=== PATIENT | female | born 1990 | race Caucasian/White ===

== ENCOUNTER 2021-11-24 10:50 | Emergency (ER) | payer OTHER ==
[~2021-11-24] VITALS: Ht 165.1 cm; Wt 71.4 kg
[2021-11-24 10:51] VITALS: BP 103/65
[2021-11-24] MEDS ORDERED: LEVO25CA PO (10:59)
[2021-11-24] MEDS ORDERED: METH-1165 PO (12:09)
[2021-11-24] MEDS ORDERED: NAPR-837 PO (12:09)
[2021-11-24] MEDS ORDERED: LIDO5DIS41 TOP (12:10)
[2021-11-24] MEDS ORDERED: KETOROLAC 60MG 2ML VIAL IM ONE (12:10)
[2021-11-24] MEDS ORDERED: methocarbamoL 750 MG TAB PO ONE (12:10)
== END 2021-11-24 12:32 | disposition home or self-care (01) ==
LOC: M ED 10:50
DX: M54.50 Low back pain, unspecified (principal); E03.9 Hypothyroidism, unspecified; Z79.890 Hormone replacement therapy; Z88.1 Allergy status to other antibiotic agents; Z88.2 Allergy status to sulfonamides
CPT/HCPCS: 96372; 99282; J1885

== ENCOUNTER 2022-12-31 08:22 | Day surgery (SDC) | payer OTHER ==
[~2022-12-31] VITALS: Ht 167.6 cm; Wt 72.6 kg
[~2022-12-31 08:22] MED LIST: CITA20TA7 PO; LEVO25CA PO; LIDO5DIS41 TOP; METH-1165 PO; NAPR-837 PO; NORE0.353 PO; QC F0.52 PO; SYNT50TA PO; THERTAB52 PO; ceFAZolin SOD 2 GM in IV 1 EA IV ONE
[2022-12-31] MEDS ORDERED: ONDANSETRON 4MG 2ML VIAL As Ordered ONE (08:34)
[2022-12-31] MEDS ORDERED: propofoL 200 MG/20 ML VIAL As Ordered ONE (08:34)
[2022-12-31] MEDS ORDERED: MIDAZOLAM INJ 2MG/2ML VIAL As Ordered ONE (08:34)
[2022-12-31] MEDS ORDERED: fentaNYL 100 MCG/2 ML INJECTION As Ordered ONE ×2 (08:34→11:31)
[2022-12-31] MEDS ORDERED: ROCURONIUM BROMIDE 50MG/5ML VIAL As Ordered ONE ×2 (08:34→11:25)
[2022-12-31] MEDS ORDERED: LIDOCAINE 2% 100MG/5ML SDV (FOR ANES.) As Ordered ONE (08:34)
[2022-12-31 08:53] LABS: BASO % 0.3 % (0.0-1.0); EOS # 0.2 10^3/uL (0.0-0.5); EOS % 2.5 % (0.0-3.0); HEMATOCRIT 42.6 % (36.0-47.0); HEMOGLOBIN 13.9 g/dl (12.0-15.5); LYMPH # 1.5 10^3/uL (1.5-5.0); LYMPH % 24.2 % (24.0-44.0); MEAN CORPUSCULAR HEMOGLOBIN 30.4 pg (27.0-33.0); MEAN CORPUSCULAR HGB CONC 32.6 g/dl (32.0-36.5); MEAN CORPUSCULAR VOLUME 93.2 fl (80.0-96.0); MONO # 0.5 10^3/uL (0.0-0.8); MONO % 8.2 % (2.0-8.0); NEUTROPHILS # 3.9 10^3/uL (1.5-8.5); NEUTROPHILS % 64.6 % (36.0-66.0); PLATELET COUNT, AUTOMATED 258 10^3/uL (150-450); RED BLOOD COUNT 4.57 10^6/uL (4.00-5.40)
[2022-12-31 09:19] LABS: HCG, SERUM QUALITATIVE NEGATIVE (NEGATIVE)
[2022-12-31] MEDS ORDERED: BUPIVACAINE HCL 0.25% 30ML VIAL As Ordered ONE (10:20)
[2022-12-31] MEDS ORDERED: LIDOCAINE 1% SDV 30ML VIAL As Ordered ONE (10:20)
[2022-12-31] MEDS ORDERED: SILVER NITRATE APPLICATOR (1 = QTY 10) As Ordered ONE (10:20)
[2022-12-31] MEDS ORDERED: ACETAMINOPHEN 1000MG 100ML IV BAG As Ordered ONE (10:43)
[2022-12-31] MEDS ORDERED: KETOROLAC 60MG 2ML VIAL As Ordered ONE (11:03)
[2022-12-31] MEDS ORDERED: SUGAMMADEX SODIUM 500 MG/5 ML VIAL (BRIDION) As Ordered ONE (11:03)
[2022-12-31] MEDS ORDERED: HYDROMORPHONE HCL 0.5 MG/ 0.5 ML SYRINGE IV PRN (12:25)
[2022-12-31] MEDS ORDERED: fentaNYL 100 MCG/2 ML INJECTION IV PRN (12:25)
[2022-12-31] MEDS ORDERED: oxyCODONE 5MG TAB PO PRN ×3 (12:25→13:05)
[2022-12-31] MEDS ORDERED: ONDANSETRON 4MG 2ML VIAL IV PRN (12:25)
[2022-12-31] MEDS ORDERED: LR 1,000 ML IV SCH ×2 (12:25→13:05)
[2022-12-31 14:25] VITALS: BP 124/75
== END 2022-12-31 14:30 | disposition home or self-care (01) ==
LOC: M SDC 08:22
PROVIDERS: ATTEND Obstetrics & Gynecology
DX: N84.0 Polyp of corpus uteri (principal); Z30.2 Encounter for sterilization; E03.9 Hypothyroidism, unspecified; F41.9 Anxiety disorder, unspecified; Z79.899 Other long term (current) drug therapy; Z88.2 Allergy status to sulfonamides
CPT/HCPCS: 36415; 58558; 58661; 84703; 85025; 86850; 86900; 86901; 88302; 88305; J0131; J1100; J1885; J2250; J2405; J3010; S0020

== ENCOUNTER 2023-05-31 16:24 | Emergency (ER) | payer OTHER ==
[~2023-05-31] VITALS: Ht 167.6 cm; Wt 73.8 kg
[~2023-05-31 16:24] MED LIST changes: -ceFAZolin SOD 2 GM in IV 1 EA IV ONE
[2023-05-31 17:22] LABS: BASO % 0.3 % (0.0-1.0); EOS # 0.2 10^3/uL (0.0-0.5); EOS % 1.2 % (0.0-3.0); HEMATOCRIT 41.8 % (36.0-47.0); LYMPH # 1.8 10^3/uL (1.5-5.0); LYMPH % 13.9 % (24.0-44.0); MEAN CORPUSCULAR HEMOGLOBIN 31.5 pg (27.0-33.0); MEAN CORPUSCULAR HGB CONC 33.5 g/dl (32.0-36.5); MEAN CORPUSCULAR VOLUME 94.1 fl (80.0-96.0); MONO # 0.8 10^3/uL (0.0-0.8); MONO % 6.4 % (2.0-8.0); NEUTROPHILS # 9.9 10^3/uL (1.5-8.5); NEUTROPHILS % 77.7 % (36.0-66.0); PLATELET COUNT, AUTOMATED 272 10^3/uL (150-450); RED BLOOD COUNT 4.44 10^6/uL (4.00-5.40); WHITE BLOOD COUNT 12.7 10^3/uL (4.0-10.0)
[2023-05-31 17:44] LABS: LIPASE 34 U/L (12-53)
[2023-05-31 17:46] LABS: ALBUMIN 4.3 G/DL (3.2-5.2); ALKALINE PHOSPHATASE 63 U/L (46-116); ALT/SGPT 12 U/L (7.0-40); AST/SGOT < 8 U/L (<34); BILIRUBIN,DIRECT 0.1 MG/DL (<0.4); BILIRUBIN,TOTAL 0.4 MG/DL (0.3-1.2); BLOOD UREA NITROGEN 13 MG/DL (9-23); CALCIUM LEVEL 9.1 MG/DL (8.5-10.1); CARBON DIOXIDE LEVEL 29 MMOL/L (20-31); CHLORIDE LEVEL 103 MMOL/L (98-107); CREATININE FOR GFR 0.76 MG/DL (0.55-1.30); GLOMERULAR FILTRATION RATE > 60.0 (>60); GLUCOSE, FASTING 90 MG/DL (60-100); SODIUM LEVEL 140 MMOL/L (136-145)
[2023-05-31] MEDS ORDERED: NS 1,000 ML IV ONE (20:10)
[2023-05-31] MEDS ORDERED: ONDANSETRON 4MG 2ML VIAL IV ONE (20:10)
[2023-05-31] MEDS ORDERED: DICYCLOMINE 10 MG CAP PO ONE (20:10)
[2023-05-31] MEDS ORDERED: ISOVUE-370 76% 100ML VIAL As Ordered ONE (20:11)
[2023-05-31] MEDS ORDERED: NITROFURANTOIN (MACROBID) 100 MG CAP PO ONE (21:15)
[2023-05-31] MEDS ORDERED: ONDA4TAB6 PO (21:17)
[2023-05-31] MEDS ORDERED: MACR100C43 PO (21:17)
[2023-05-31] MEDS ORDERED: DICY-61 PO (21:17)
[2023-05-31 21:29] VITALS: BP 104/65; TEMP 96.7; O2SAT 100
== END 2023-05-31 21:32 | disposition home or self-care (01) ==
LOC: M ED 16:24
DX: N39.0 Urinary tract infection, site not specified (principal); R11.2 Nausea with vomiting, unspecified; Z88.2 Allergy status to sulfonamides; Z79.810 Long term (current) use of selective estrogen receptor modulators (SERMs); Z79.899 Other long term (current) drug therapy
CPT/HCPCS: 74177; 80048; 80076; 81001; 83690; 85025; 87088; 87186; 96361; 96374; 99283; J2405; Q9967